=== PATIENT | male | born 1985 | race Caucasian/White ===

== ENCOUNTER 2019-11-09 23:52 | Emergency (ER) | payer BC, OTHER ==
[2019-11-10] MEDS ORDERED: Orphenadrine 100 MG Tab.ER PO ONE ×2 (00:29→00:43)
[2019-11-10] MEDS ORDERED: Acetaminophen/HYDROcodone 325-5 MG Tab PO ONE (00:43)
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
--- NOTE | 2019-11-10 10:14 | CR ---
Right clavicle: 2 views right clavicle were obtained. Displaced and foreshortened fracture noted within the clavicle. Possible posterior rib fractures noted within the second and third ribs near the costovertebral junction. Impression: 1. Right clavicle fracture and to possible posterior right rib fractures. Diagnostic code #3 Study was dictated in MDT
--- NOTE | 2019-11-10 11:37 | CR ---
Chest and right ribs: Frontal view of the chest was obtained as well as 3 views of the right ribs. Comparison: Previous chest and rib study is not available. Findings: Questionable fractures are noted within the posterior 2nd, 3rd and possibly 4th rib. This occurs near the costovertebral junction. No additional rib fractures are definitely appreciated. Right clavicle fracture is noted. Heart size and mediastinum are normal. Lungs are clear. Impression: 1. 3 possible posterior right upper rib fractures. 2. Right clavicle fracture. 3. Nothing acute is otherwise seen on frontal chest x-ray. Diagnostic code #3 This report was dictated in MDT
--- NOTE | 2019-11-10 11:38 | CR ---
Right shoulder: 3 views of the right shoulder were obtained. Comparison: No previous study. Glenohumeral joint and acromioclavicular joint appears unremarkable. Displaced and foreshortened right clavicle fracture is again noted. No additional abnormality is seen. Impression: 1. Right clavicle fracture as noted above. 2. No additional abnormality is appreciated on right shoulder study. Diagnostic code #3 This report was dictated in MDT
== END 2019-11-10 00:55 | disposition home or self-care (01) ==
LOC: JD.ED 23:52
DX: S42.021A Displaced fracture of shaft of right clavicle, initial encounter for closed fracture (principal); S30.811A Abrasion of abdominal wall, initial encounter; F17.210 Nicotine dependence, cigarettes, uncomplicated; Z79.899 Other long term (current) drug therapy; V89.2XXA Person injured in unspecified motor-vehicle accident, traffic, initial encounter
CPT/HCPCS: 71101; 73000; 73030; 99284; A9270; 99283